=== PATIENT | female | born 1995 | race Caucasian/White ===

== ENCOUNTER 2019-04-23 19:14 | Emergency (ER) | payer SELFPAY ==
[~2019-04-23] VITALS: Ht 160 cm; Wt 67.1 kg
--- NOTE | 2019-04-23 20:11 | NUR ---
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 PT STATES THAT IT WAS NUMB BUT THE NUMBNESS HAS SUBSIDED. PT AOX4. NAD NOTED. RESP EVEN AND UNLABORED. PT ON MONITOR IN BED 2 WITH FAMILY AT BEDSIDE. WILL CONTINUE TO MONITOR.
--- NOTE | 2019-04-23 21:08 | NUR ---
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 PT STATES THAT IT WAS NUMB BUT THE NUMBNESS HAS SUBSIDED. SHE REPORTS THAT LEFT CALF IS ONLY PAINFUL WHEN SHE IS WALING RATED AT 4/10 PAIN. REPORTS NO PAIN WHILE AT REST. PT AOX4. NAD NOTED. RESP EVEN AND UNLABORED. PT VITAL SIGNS TAKEN. REPORT THAT PA WAS ALREADY IN TO SEE THEM AWAITING TESTS TO BE PERFORMED. FAMILY AT BEDSIDE. WILL CONTINUE TO MONITOR.
[2019-04-23 21:10] VITALS: BP 106/67
== END 2019-04-23 22:22 | disposition home or self-care (01) ==
LOC: ER 19:22
DX: M79.662 Pain in left lower leg (principal)
CPT/HCPCS: 93970-TC